=== PATIENT | female | born 1940 | race Caucasian/White ===

== ENCOUNTER 2023-12-29 17:39 | Emergency (ER) | payer MEDICARE, OTHER, SELFPAY ==
[2023-12-29 17:44] VITALS: BP 175/99; BMI 28.2
--- NOTE | 2023-12-29 18:07 | EDRN ---
Rachel Bolden [employer] [employer] in to see pt.
--- NOTE | 2023-12-29 21:36 | ED.GENMED ---
History of Present Illness
General
Chief Complaint: Gynecological Problem
Source: patient
Exam Limitations: none
Time Seen by Provider: 12/29/23 17:55
Nursing documentation reviewed up to this point in time: agreed with
Travel History
Have you had any contact with someone who has COVID-19?: No
Do you have any symptoms of coronavirus? Fever > 100 degrees, chills, cough, shortness of breath, sore throat, loss of taste or smell, muscle aches, or headache?: No
History of Present Illness
History of Present Illness:
patient to ED for eval of bleeding from chronic uterine prolapse. States she noted blood on tissue after wiping today. Brought to ED by family for eval. Patient had pessary placed many years ago but reports she had issue with it so she has gone
without for many years. She has no other complaints
Past History
Past History
ED Past Medical History: None
Review of Systems
Review of Systems
Allergies reviewed?: Yes
All Other Systems: ROS reviewed and negative except as documented in HPI and ROS
Constitutional: Reports no symptoms
EENT: Reports no symptoms
Respiratory: Reports no symptoms
Cardiac: Reports no symptoms
ABD/GI: Reports no symptoms
: Reports other (bleeding from prolapsed uterus)
Musculoskeletal: Reports no symptoms
Skin: Reports no symptoms
Neurological: Reports no symptoms
Psychiatric: Reports no symptoms
Phy Exam
General Physical Exam
General Presentation: well appearing and no apparent distress
General age: appears stated age
General Skin: warm and dry
General Habitus: normal
General Mental: alert
Gastrointestinal Exam
Gastrointestinal Exam: normal bowel sounds, non tender and soft
Genitourinary Exam Female
Exam Female: other (vaginal prolapse x 20 yrs. small area abrasion noted. No active bleeding.)
Musculoskeletal Exam
Musculoskeletal Exam: full ROM and neuro vasc intact
Skin Exam
Skin Exam: normal color, warm/dry and no rash
Psychiatric Exam
Psychiatric Exam: normal mood/affect
Course
Vital Signs
Initial and Last Documented VS:
Initial Vital Signs
Temp Pulse Resp BP Pulse Ox
98 F 80 16 175/99 99
12/29/23 17:44 12/29/23 17:44 12/29/23 17:44 12/29/23 17:44 12/29/23 17:44
Last Documented Vital Signs
Temp Pulse Resp BP Pulse Ox
98 F 80 16 175/99 99
12/29/23 17:44 12/29/23 17:44 12/29/23 17:44 12/29/23 17:44 12/29/23 17:44
*Critical Care Note
Total Time (30-74mins, 75-104mins- exclusive of procedures): Not Applicable
ED Attending Note
-
Portions of this chart may have been created with voice recognition software.� Occasional wrong word or��sound alike� substitutions may have occurred due to the inherent limitations of voice recognition software.
Discharge Plan
Departure
Patient Disposition: Home (Routine Discharge)
Date of Disposition: 12/29/23
Time of Disposition: 18:11
Patient with high blood pressure during this ER visit?: No
Condition: Good
Covid-19: Not Applicable
Discharge Problem:
Prolapse of female pelvic organs
Instructions: Pelvic organ prolapse, Abrasions ED
Activity Restrictions/Additional Instructions:
Follow up with [employer] this week.
Interventions
Interventions:
*Risk Screen - Suicide Last Done: 12/29/23 17:44
*General Assessment Last Done: 12/29/23 18:43
*Neglect/Abuse Screening Last Done: 12/29/23 17:44
ED- Fall Risk Assessment Last Done: 12/29/23 18:43
*ED COVID-19 Vaccine History Last Done: 12/29/23 17:44
*Nursing Disposition Last Done: 12/29/23 18:44
ED-Female Genitourinary Assessment Last Done: 12/29/23 18:43
Discharge Date and Time
Discharge Date/Time: 12/29/23 18:44
== END 2023-12-29 18:44 | disposition home or self-care (01) ==
LOC: EMR 17:39
PROVIDERS: EMERGENCY PHYSICIAN Emergency Medicine; FAMILY PHYSICIAN Family Medicine
DX: N81.9 Female genital prolapse, unspecified (principal); S30.814A Abrasion of vagina and vulva, initial encounter; X58.XXXA Exposure to other specified factors, initial encounter
CPT/HCPCS: 99283